=== PATIENT | male | born 1985 | race Caucasian/White ===

== ENCOUNTER 2024-02-23 19:13 | Emergency (ER) | payer BC, OTHER ==
[2024-02-23 19:25] VITALS: BP 139/95; PULSE 77; RESP 16; TEMP 98.6; BMI 27.4
== END 2024-02-23 21:09 | disposition home or self-care (01) ==
LOC: FER 19:13
DX: J02.9 Acute pharyngitis, unspecified (principal); R07.0 Pain in throat
CPT/HCPCS: 87651; 99283-25